=== PATIENT | female | born 1930 | race Two or more races ===

== ENCOUNTER → 2016-09-15 | Outpatient (CLI) | payer MEDICARE, OTHER ==
[2016-09-15 14:05] LABS: Basophils # (auto) 0 uL; Basophils % (auto) 0.5 % (0.0-2.0); Eosinophils # (auto) 0.1 uL; Eosinophils % (auto) 0.8 % (0.0-7.0); Hematocrit 32.5 % (36.0-46.0); Hemoglobin 10.7 g/dL (12.2-16.2); Lymphocytes # (auto) 2.3 uL; Mean Corpuscular Hemoglobin 31.4 pg (28.0-32.0); Mean Corpuscular Volume 95.1 fL (80.0-100.0); Mean Platelet Volume 7.9 fL (7.4-10.4); Monocytes # (auto) 0.6 uL; Monocytes % (auto) 7.8 % (0.0-12.0); Neutrophils # (auto) 5.3 uL; Neutrophils % (auto) 63.9 % (37.0-80.0); Platelet Count (auto) 319 10^3/uL (140-450); Red Cell Distribution Width 15.6 % (11.6-16.0); White Blood Cell 8.3 10^3/uL (4.4-10.8)
[2016-09-15 14:24] LABS: Albumin 3.5 g/dL (3.4-5.0); BUN/Creatinine Ratio 19.1; Bilirubin, Total 0.2 mg/dL (0.2-1.0); Calcium 8.9 mg/dL (8.5-10.1); Potassium 4.2 mmol/L (3.5-5.1); Total Protein 6.9 g/dL (6.4-8.2)
== END | disposition home or self-care (01) ==
LOC: LAB 13:44
DX: M06.9 Rheumatoid arthritis, unspecified (principal); M25.50 Pain in unspecified joint; D64.9 Anemia, unspecified; I10 Essential (primary) hypertension
CPT/HCPCS: 36415; 80053; 85025; 85049; 85652; 86141

== ENCOUNTER → 2016-10-13 | Outpatient (CLI) | payer MEDICARE, OTHER ==
[2016-10-13 12:12] LABS: Urine RBC None Seen /hpf (0 - 4)
[2016-10-13 12:27] LABS: Basophils # (auto) 0.1 uL; Basophils % (auto) 0.7 % (0.0-2.0); Eosinophils # (auto) 0.1 uL; Eosinophils % (auto) 1.3 % (0.0-7.0); Hematocrit 33.3 % (36.0-46.0); Hemoglobin 10.6 g/dL (12.2-16.2); Lymphocytes # (auto) 2.3 uL; Lymphocytes % (auto) 30.7 % (10.0-50.0); Mean Corpuscular Hemoglobin 30.7 pg (28.0-32.0); Mean Corpuscular Hgb Conc. 31.7 g/dL (32.0-36.0); Mean Corpuscular Volume 96.8 fL (80.0-100.0); Mean Platelet Volume 8.4 fL (7.4-10.4); Monocytes # (auto) 0.5 uL; Monocytes % (auto) 7.2 % (0.0-12.0); Neutrophils # (auto) 4.4 uL; Neutrophils % (auto) 60.1 % (37.0-80.0); Platelet Count (auto) 313 10^3/uL (140-450); White Blood Cell 7.4 10^3/uL (4.4-10.8)
[2016-10-13 12:44] LABS: Urine Bilirubin Negative (Negative); Urine Blood Negative /uL (Negative); Urine Color Yellow (Yellow); Urine Glucose Normal (Normal); Urine Ketone Negative (Negative); Urine Nitrite POSITIVE (Negative); Urine Squamous Epithelial Cell FEW /hpf (<5); Urine Urobilinogen Normal (Negative); Urine WBC Clumps PRESENT /hpf (None Seen); Urine pH 5.5 (5.0-8.0)
[2016-10-13 13:03] LABS: Albumin 3.6 g/dL (3.4-5.0); BUN/Creatinine Ratio 22.6; Bilirubin, Total 0.3 mg/dL (0.2-1.0); Calcium 8.9 mg/dL (8.5-10.1); Total Protein 6.8 g/dL (6.4-8.2)
== END | disposition home or self-care (01) ==
LOC: LAB 08:33
PROVIDERS: ATTEND Family Medicine
DX: E11.9 Type 2 diabetes mellitus without complications (principal); E03.9 Hypothyroidism, unspecified; D53.9 Nutritional anemia, unspecified; N39.0 Urinary tract infection, site not specified; E78.00 Pure hypercholesterolemia, unspecified
CPT/HCPCS: 36415; 80053; 80061; 81001; 82043; 83036; 84439; 84443; 85025

== ENCOUNTER → 2016-12-15 | Outpatient (CLI) | payer MEDICARE, OTHER ==
[2016-12-15 10:10] LABS: Basophils # (auto) 0 uL; Basophils % (auto) 0.5 % (0.0-2.0); Eosinophils # (auto) 0.1 uL; Eosinophils % (auto) 1.3 % (0.0-7.0); Hematocrit 32.3 % (36.0-46.0); Hemoglobin 10.6 g/dL (12.2-16.2); Lymphocytes # (auto) 1.8 uL; Lymphocytes % (auto) 25.9 % (10.0-50.0); Mean Corpuscular Hemoglobin 31.5 pg (28.0-32.0); Mean Corpuscular Hgb Conc. 32.8 g/dL (32.0-36.0); Mean Corpuscular Volume 96.2 fL (80.0-100.0); Mean Platelet Volume 7.9 fL (7.4-10.4); Monocytes # (auto) 0.4 uL; Monocytes % (auto) 5.2 % (0.0-12.0); Neutrophils # (auto) 4.7 uL; Neutrophils % (auto) 67.1 % (37.0-80.0); Platelet Count (auto) 319 10^3/uL (140-450); Red Cell Distribution Width 14.9 % (11.6-16.0)
[2016-12-15 10:31] LABS: Urine RBC None Seen /hpf (0 - 4)
[2016-12-15 10:32] LABS: Urine Bilirubin Negative (Negative); Urine Blood Negative /uL (Negative); Urine Color Yellow (Yellow); Urine Glucose Normal (Normal); Urine Ketone Negative (Negative); Urine Nitrite Negative (Negative); Urine Squamous Epithelial Cell FEW /hpf (<5); Urine Urobilinogen Normal (Negative); Urine pH 6.5 (5.0-8.0)
[2016-12-15 10:42] LABS: Albumin 3.4 g/dL (3.4-5.0); Calcium 8.6 mg/dL (8.5-10.1); Potassium 3.6 mmol/L (3.5-5.1)
[2016-12-15 10:44] LABS: BUN/Creatinine Ratio 22.4
[2016-12-15 10:47] LABS: Bilirubin, Total 0.4 mg/dL (0.2-1.0); Total Protein 6.7 g/dL (6.4-8.2)
== END | disposition home or self-care (01) ==
LOC: LAB 09:04
PROVIDERS: ATTEND Internal Medicine
DX: E11.9 Type 2 diabetes mellitus without complications (principal); E03.9 Hypothyroidism, unspecified; E78.00 Pure hypercholesterolemia, unspecified; D53.9 Nutritional anemia, unspecified; N39.0 Urinary tract infection, site not specified
CPT/HCPCS: 36415; 80053; 81001; 83036; 84439; 84443; 85025

== ENCOUNTER → 2017-01-28 | Outpatient (CLI) | payer MEDICARE, OTHER ==
[2017-01-28 14:51] LABS: Basophils # (auto) 0 uL; Basophils % (auto) 0.4 % (0.0-2.0); Eosinophils # (auto) 0.1 uL; Eosinophils % (auto) 0.9 % (0.0-7.0); Hematocrit 33.3 % (36.0-46.0); Hemoglobin 11.3 g/dL (12.2-16.2); Lymphocytes # (auto) 2.2 uL; Lymphocytes % (auto) 23.8 % (10.0-50.0); Mean Corpuscular Hemoglobin 32.4 pg (28.0-32.0); Mean Corpuscular Volume 95.1 fL (80.0-100.0); Mean Platelet Volume 8.2 fL (7.4-10.4); Monocytes # (auto) 0.6 uL; Monocytes % (auto) 6.5 % (0.0-12.0); Neutrophils # (auto) 6.3 uL; Neutrophils % (auto) 68.4 % (37.0-80.0); Platelet Count (auto) 337 10^3/uL (140-450); Red Cell Distribution Width 15.2 % (11.6-16.0); White Blood Cell 9.3 10^3/uL (4.4-10.8)
[2017-01-28 15:27] LABS: BUN/Creatinine Ratio 18.3; Bilirubin, Total 0.3 mg/dL (0.2-1.0); Calcium 8.6 mg/dL (8.5-10.1); Potassium 4.1 mmol/L (3.5-5.1)
[2017-01-28 15:28] LABS: Albumin 3.5 g/dL (3.4-5.0)
== END | disposition home or self-care (01) ==
LOC: LAB 14:28
DX: M05.60 Rheumatoid arthritis of unspecified site with involvement of other organs and systems (principal); D50.9 Iron deficiency anemia, unspecified; N39.0 Urinary tract infection, site not specified; E03.9 Hypothyroidism, unspecified; Z13.220 Encounter for screening for lipoid disorders
CPT/HCPCS: 36415; 80053; 85025; 85652; 86141

== ENCOUNTER → 2017-03-18 | Outpatient (CLI) | payer MEDICARE, OTHER ==
[2017-03-18 09:27] LABS: Urine RBC None Seen /hpf (0 - 4)
[2017-03-18 09:34] LABS: Basophils # (auto) 0 uL; Basophils % (auto) 0.4 % (0.0-2.0); CONDITION Y; Eosinophils # (auto) 0.1 uL; Eosinophils % (auto) 1.1 % (0.0-7.0); Hematocrit 33.8 % (36.0-46.0); Hemoglobin 11.4 g/dL (12.2-16.2); Lymphocytes # (auto) 2.6 uL; Lymphocytes % (auto) 36.3 % (10.0-50.0); Mean Corpuscular Hemoglobin 32.3 pg (28.0-32.0); Mean Corpuscular Hgb Conc. 33.6 g/dL (32.0-36.0); Mean Corpuscular Volume 96.1 fL (80.0-100.0); Mean Platelet Volume 8.1 fL (7.4-10.4); Monocytes # (auto) 0.5 uL; Monocytes % (auto) 6.7 % (0.0-12.0); Neutrophils % (auto) 55.5 % (37.0-80.0); Platelet Count (auto) 325 10^3/uL (140-450); Red Cell Distribution Width 14.9 % (11.6-16.0); White Blood Cell 7.3 10^3/uL (4.4-10.8)
[2017-03-18 09:41] LABS: Urine Bilirubin Negative (Negative); Urine Blood Negative /uL (Negative); Urine Color Yellow (Yellow); Urine Glucose Normal (Normal); Urine Ketone Negative (Negative); Urine Nitrite Negative (Negative); Urine Squamous Epithelial Cell FEW /hpf (<5); Urine Urobilinogen Normal (Negative)
[2017-03-18 10:43] LABS: Albumin 3.4 g/dL (3.4-5.0); BUN/Creatinine Ratio 20.4; Calcium 8.6 mg/dL (8.5-10.1); Potassium 3.9 mmol/L (3.5-5.1)
[2017-03-18 10:46] LABS: Bilirubin, Total 0.3 mg/dL (0.2-1.0); Total Protein 6.8 g/dL (6.4-8.2)
== END | disposition home or self-care (01) ==
LOC: LAB 09:11
DX: E11.9 Type 2 diabetes mellitus without complications (principal); E03.9 Hypothyroidism, unspecified; N39.0 Urinary tract infection, site not specified; D53.9 Nutritional anemia, unspecified; E78.00 Pure hypercholesterolemia, unspecified
CPT/HCPCS: 36415; 80053; 81001; 82306; 83036; 84439; 84443; 85025

== ENCOUNTER → 2017-06-22 | Outpatient (CLI) | payer MEDICARE, OTHER ==
[2017-06-22 10:22] LABS: Urine RBC None Seen /hpf (0 - 4)
[2017-06-22 10:40] LABS: Basophils # (auto) 0.1 uL; Basophils % (auto) 0.8 % (0.0-2.0); Eosinophils # (auto) 0.1 uL; Eosinophils % (auto) 0.9 % (0.0-7.0); Hematocrit 34.1 % (36.0-46.0); Hemoglobin 11.6 g/dL (12.2-16.2); Lymphocytes # (auto) 2.3 uL; Mean Corpuscular Hemoglobin 32.8 pg (28.0-32.0); Mean Corpuscular Hgb Conc. 34.1 g/dL (32.0-36.0); Mean Corpuscular Volume 96.1 fL (80.0-100.0); Mean Platelet Volume 7.8 fL (6.9-10.8); Monocytes # (auto) 0.6 uL; Monocytes % (auto) 6.8 % (0.0-12.0); Neutrophils # (auto) 5.7 uL; Neutrophils % (auto) 65.5 % (37.0-80.0); Nucleated Red Blood Cells % 0.1 %; Platelet Count (auto) 284 10^3/uL (140-450); Red Cell Distribution Width 14.7 % (11.8-14.3); White Blood Cell 8.7 10^3/uL (4.4-10.8)
[2017-06-22 10:42] LABS: Urine Bilirubin Negative (Negative); Urine Blood Negative /uL (Negative); Urine Color Yellow (Yellow); Urine Glucose Normal (Normal); Urine Ketone Negative (Negative); Urine Nitrite Negative (Negative); Urine Squamous Epithelial Cell FEW /hpf (<5); Urine Urobilinogen Normal (Negative); Urine pH 6.5 (5.0-8.0)
[2017-06-22 11:04] LABS: BUN/Creatinine Ratio 18.2; Calcium 8.7 mg/dL (8.5-10.1); Potassium 3.7 mmol/L (3.5-5.1)
== END | disposition home or self-care (01) ==
LOC: LAB 09:53
DX: E11.9 Type 2 diabetes mellitus without complications (principal); E03.9 Hypothyroidism, unspecified; N39.0 Urinary tract infection, site not specified; D53.9 Nutritional anemia, unspecified; E78.00 Pure hypercholesterolemia, unspecified
CPT/HCPCS: 36415; 80048; 80061; 81001; 82043; 83036; 85025

== ENCOUNTER → 2017-09-21 | Outpatient (CLI) | payer MEDICARE, OTHER ==
[2017-09-21 09:23] LABS: Basophils # (auto) 0.1 uL; Basophils % (auto) 0.5 % (0.0-2.0); Eosinophils # (auto) 0.1 uL; Eosinophils % (auto) 1.1 % (0.0-7.0); Hematocrit 35.1 % (36.0-46.0); Hemoglobin 11.7 g/dL (12.2-16.2); Lymphocytes # (auto) 1.9 uL; Mean Corpuscular Hemoglobin 32.2 pg (28.0-32.0); Mean Corpuscular Hgb Conc. 33.4 g/dL (32.0-36.0); Mean Corpuscular Volume 96.4 fL (80.0-100.0); Monocytes # (auto) 0.7 uL; Monocytes % (auto) 7.6 % (0.0-12.0); Neutrophils # (auto) 6.7 uL; Neutrophils % (auto) 70.8 % (37.0-80.0); Platelet Count (auto) 332 10^3/uL (140-450); Red Blood Cells 3.64 10^6/uL (4.0-5.20); White Blood Cell 9.5 10^3/uL (4.4-10.8)
[2017-09-21 09:36] LABS: Urine Bacteria FEW /hpf (None Seen); Urine Blood Negative /uL (Negative); Urine Mucus FEW (None Seen); Urine Specific Gravity 1.025 (1.001-1.035); Urine WBC 14 /hpf (0 - 5)
[2017-09-21 09:45] LABS: Albumin 3.6 g/dL (3.4-5.0); BUN/Creatinine Ratio 21.6; Bilirubin, Total 0.4 mg/dL (0.2-1.0); Calcium 8.4 mg/dL (8.5-10.1); Potassium 3.6 mmol/L (3.5-5.1); Total Protein 7.1 g/dL (6.4-8.2)
== END | disposition home or self-care (01) ==
LOC: LAB 08:58
DX: E11.9 Type 2 diabetes mellitus without complications (principal); D53.9 Nutritional anemia, unspecified; E78.9 Disorder of lipoprotein metabolism, unspecified; N39.0 Urinary tract infection, site not specified
CPT/HCPCS: 36415; 80053; 81001; 82043; 82550; 83036; 85025

== ENCOUNTER → 2017-12-14 | Outpatient (CLI) | payer MEDICARE, OTHER ==
[2017-12-14 09:21] LABS: Basophils # (auto) 0 uL; Basophils % (auto) 0.5 % (0.0-2.0); Eosinophils # (auto) 0.1 uL; Eosinophils % (auto) 1.2 % (0.0-7.0); Hematocrit 35.2 % (36.0-46.0); Hemoglobin 11.8 g/dL (12.2-16.2); Lymphocytes # (auto) 1.9 uL; Lymphocytes % (auto) 23.9 % (10.0-50.0); Mean Corpuscular Hemoglobin 32.1 pg (28.0-32.0); Mean Corpuscular Hgb Conc. 33.4 g/dL (32.0-36.0); Mean Corpuscular Volume 96.1 fL (80.0-100.0); Monocytes # (auto) 0.5 uL; Monocytes % (auto) 6.4 % (0.0-12.0); Neutrophils # (auto) 5.3 uL; Platelet Count (auto) 286 10^3/uL (140-450); Red Blood Cells 3.66 10^6/uL (4.0-5.20); Red Cell Distribution Width 14.1 % (11.8-14.3); White Blood Cell 7.8 10^3/uL (4.4-10.8)
[2017-12-14 09:31] LABS: Urine Bacteria FEW /hpf (None Seen); Urine Blood Negative /uL (Negative); Urine Specific Gravity 1.009 (1.001-1.035); Urine WBC 9 /hpf (0 - 5)
[2017-12-14 09:44] LABS: Albumin 3.5 g/dL (3.4-5.0); BUN/Creatinine Ratio 20.3; Bilirubin, Total 0.4 mg/dL (0.2-1.0); Calcium 8.6 mg/dL (8.5-10.1); Potassium 3.8 mmol/L (3.5-5.1); Total Protein 6.9 g/dL (6.4-8.2)
== END | disposition home or self-care (01) ==
LOC: LAB 08:46
DX: E11.22 Type 2 diabetes mellitus with diabetic chronic kidney disease (principal); I12.9 Hypertensive chronic kidney disease with stage 1 through stage 4 chronic kidney disease, or unspecified chronic kidney disease; N18.9 Chronic kidney disease, unspecified; E78.9 Disorder of lipoprotein metabolism, unspecified; D53.9 Nutritional anemia, unspecified; N39.0 Urinary tract infection, site not specified; E78.00 Pure hypercholesterolemia, unspecified; M06.9 Rheumatoid arthritis, unspecified; Z79.899 Other long term (current) drug therapy
CPT/HCPCS: 36415; 80053; 81001; 82043; 83036; 85025

== ENCOUNTER → 2018-06-07 | Outpatient (CLI) | payer MEDICARE, OTHER ==
[2018-06-07 11:00] LABS: Urine Bacteria NONE SEEN /hpf (None Seen); Urine Blood Negative /uL (Negative); Urine Mucus FEW (None Seen); Urine WBC 1 /hpf (0 - 5)
[2018-06-07 11:10] LABS: Albumin 3.4 g/dL (3.4-5.0); Calcium 8.5 mg/dL (8.5-10.1); Potassium 4.1 mmol/L (3.5-5.1)
[2018-06-07 11:11] LABS: BUN/Creatinine Ratio 19.4
[2018-06-07 11:14] LABS: Bilirubin, Total 0.5 mg/dL (0.2-1.0); Total Protein 7.1 g/dL (6.4-8.2)
== END | disposition home or self-care (01) ==
LOC: LAB 10:25
DX: E11.9 Type 2 diabetes mellitus without complications (principal); N39.0 Urinary tract infection, site not specified; D53.9 Nutritional anemia, unspecified
CPT/HCPCS: 36415; 80053; 81001; 82043; 83036

== ENCOUNTER → 2018-09-06 | Outpatient (CLI) | payer MEDICARE, OTHER ==
[2018-09-06 10:07] LABS: Basophils # (auto) 0.1 uL; Basophils % (auto) 0.7 % (0.0-2.0); Eosinophils # (auto) 0.1 uL; Hemoglobin 11.8 g/dL (12.2-16.2); Lymphocytes # (auto) 2.2 uL; Lymphocytes % (auto) 25.7 % (10.0-50.0); Mean Corpuscular Hemoglobin 32.3 pg (28.0-32.0); Mean Corpuscular Hgb Conc. 33.6 g/dL (32.0-36.0); Monocytes # (auto) 0.7 uL; Monocytes % (auto) 8.1 % (0.0-12.0); Neutrophils # (auto) 5.6 uL; Neutrophils % (auto) 64.5 % (37.0-80.0); Platelet Count (auto) 278 10^3/uL (140-450); Red Blood Cells 3.65 10^6/uL (4.0-5.20); Red Cell Distribution Width 15.1 % (11.8-14.3); White Blood Cell 8.7 10^3/uL (4.4-10.8)
[2018-09-06 10:13] LABS: Urine Bacteria NONE SEEN /hpf (None Seen); Urine Blood Negative /uL (Negative); Urine Specific Gravity 1.016 (1.001-1.035); Urine WBC 2 /hpf (0 - 5)
[2018-09-06 10:24] LABS: Albumin 3.6 g/dL (3.4-5.0); Calcium 8.6 mg/dL (8.5-10.1); Potassium 3.8 mmol/L (3.5-5.1)
[2018-09-06 10:27] LABS: BUN/Creatinine Ratio 17.9; Bilirubin, Total 0.4 mg/dL (0.2-1.0)
== END | disposition home or self-care (01) ==
LOC: LAB 09:32
DX: N39.0 Urinary tract infection, site not specified (principal); E11.9 Type 2 diabetes mellitus without complications; E03.9 Hypothyroidism, unspecified; D53.9 Nutritional anemia, unspecified
CPT/HCPCS: 36415; 80053; 81001; 82043; 83036; 85025

== ENCOUNTER → 2018-12-13 | Outpatient (CLI) | payer MEDICARE, OTHER ==
[2018-12-13 09:00] LABS: Basophils # (auto) 0 uL; Basophils % (auto) 0.4 % (0.0-2.0); Eosinophils # (auto) 0.1 uL; Eosinophils % (auto) 0.7 % (0.0-7.0); Hematocrit 36.7 % (36.0-46.0); Hemoglobin 12.2 g/dL (12.2-16.2); Lymphocytes # (auto) 2.5 uL; Lymphocytes % (auto) 25.4 % (10.0-50.0); Mean Corpuscular Hemoglobin 32.3 pg (28.0-32.0); Mean Corpuscular Hgb Conc. 33.1 g/dL (32.0-36.0); Mean Corpuscular Volume 97.5 fL (80.0-100.0); Monocytes # (auto) 0.8 uL; Monocytes % (auto) 8.1 % (0.0-12.0); Neutrophils # (auto) 6.5 uL; Neutrophils % (auto) 65.4 % (37.0-80.0); Nucleated Red Blood Cells % 0.1 %; Platelet Count (auto) 272 10^3/uL (140-450); Red Blood Cells 3.76 10^6/uL (4.0-5.20); Red Cell Distribution Width 14.9 % (11.8-14.3)
[2018-12-13 09:17] LABS: Albumin 3.5 g/dL (3.4-5.0); BUN/Creatinine Ratio 15.9; Calcium 8.7 mg/dL (8.5-10.1)
[2018-12-13 09:19] LABS: Protein, Urine 15.8 mg/dL (0.0-11.9)
[2018-12-13 09:20] LABS: Urine Bacteria MOD /hpf (None Seen); Urine Blood Negative /uL (Negative); Urine Specific Gravity 1.013 (1.001-1.035); Urine WBC 3 /hpf (0 - 5)
[2018-12-13 09:21] LABS: Bilirubin, Total 0.4 mg/dL (0.2-1.0); Total Protein 6.9 g/dL (6.4-8.2)
== END | disposition home or self-care (01) ==
LOC: LAB 08:47
DX: N39.0 Urinary tract infection, site not specified (principal); E11.9 Type 2 diabetes mellitus without complications; E03.9 Hypothyroidism, unspecified; E78.00 Pure hypercholesterolemia, unspecified; D53.9 Nutritional anemia, unspecified
CPT/HCPCS: 36415; 80053; 80061; 81001; 82570; 83036; 84156; 84439; 84443; 85025

== ENCOUNTER → 2019-03-14 | Outpatient (CLI) | payer MEDICARE, OTHER ==
[2019-03-14 09:54] LABS: Basophils # (auto) 0 uL; Basophils % (auto) 0.5 % (0.0-2.0); Eosinophils # (auto) 0 uL; Eosinophils % (auto) 0.5 % (0.0-7.0); Hematocrit 33.6 % (36.0-46.0); Hemoglobin 11.5 g/dL (12.2-16.2); Lymphocytes # (auto) 2.5 uL; Lymphocytes % (auto) 31.3 % (10.0-50.0); Mean Corpuscular Hemoglobin 33.3 pg (28.0-32.0); Mean Corpuscular Hgb Conc. 34.3 g/dL (32.0-36.0); Mean Corpuscular Volume 97.2 fL (80.0-100.0); Monocytes # (auto) 0.6 uL; Monocytes % (auto) 7.6 % (0.0-12.0); Neutrophils # (auto) 4.8 uL; Neutrophils % (auto) 60.1 % (37.0-80.0); Platelet Count (auto) 257 10^3/uL (140-450); Red Blood Cells 3.45 10^6/uL (4.0-5.20); Red Cell Distribution Width 14.3 % (11.8-14.3)
[2019-03-14 10:08] LABS: Albumin 3.3 g/dL (3.4-5.0); Calcium 8.5 mg/dL (8.5-10.1)
[2019-03-14 10:13] LABS: BUN/Creatinine Ratio 18.8; Bilirubin, Total 0.4 mg/dL (0.2-1.0); Total Protein 6.7 g/dL (6.4-8.2)
== END | disposition home or self-care (01) ==
LOC: LAB 09:32
PROVIDERS: ATTEND Internal Medicine
DX: M89.8X9 Other specified disorders of bone, unspecified site (principal); E11.9 Type 2 diabetes mellitus without complications
CPT/HCPCS: 36415; 80053; 83036; 85025

== ENCOUNTER → 2019-06-15 | Outpatient (CLI) | payer MEDICARE, OTHER ==
[2019-06-15 10:39] LABS: Basophils # (auto) 0.1 uL; Basophils % (auto) 0.6 % (0.0-2.0); Eosinophils # (auto) 0.1 uL; Eosinophils % (auto) 1.1 % (0.0-7.0); Hematocrit 33.6 % (36.0-46.0); Hemoglobin 11.3 g/dL (12.2-16.2); Lymphocytes # (auto) 2.2 uL; Lymphocytes % (auto) 25.2 % (10.0-50.0); Mean Corpuscular Hgb Conc. 33.5 g/dL (32.0-36.0); Mean Corpuscular Volume 98.6 fL (80.0-100.0); Monocytes # (auto) 0.6 uL; Neutrophils # (auto) 5.9 uL; Neutrophils % (auto) 66.1 % (37.0-80.0); Platelet Count (auto) 266 10^3/uL (140-450); Red Blood Cells 3.41 10^6/uL (4.0-5.20); Red Cell Distribution Width 14.2 % (11.8-14.3); White Blood Cell 8.9 10^3/uL (4.4-10.8)
[2019-06-15 10:46] LABS: Urine Bacteria MANY /hpf (None Seen); Urine Blood Negative /uL (Negative); Urine Specific Gravity 1.014 (1.001-1.035); Urine WBC 59 /hpf (0 - 5); Urine WBC Clumps PRESENT /hpf (None Seen)
[2019-06-15 10:56] LABS: Albumin 3.2 g/dL (3.4-5.0); Calcium 8.7 mg/dL (8.5-10.1)
[2019-06-15 10:59] LABS: BUN/Creatinine Ratio 19.4; Bilirubin, Total 0.3 mg/dL (0.2-1.0); Total Protein 6.6 g/dL (6.4-8.2)
== END | disposition home or self-care (01) ==
LOC: LAB 10:30
DX: E11.9 Type 2 diabetes mellitus without complications (principal); E78.9 Disorder of lipoprotein metabolism, unspecified; N39.0 Urinary tract infection, site not specified
CPT/HCPCS: 36415; 80053; 81001; 83036; 85025

== ENCOUNTER → 2019-09-07 | Outpatient (CLI) | payer MEDICARE, OTHER ==
[2019-09-07 09:28] LABS: Urine Bacteria FEW /hpf (None Seen); Urine Blood Negative /uL (Negative); Urine Specific Gravity 1.008 (1.001-1.035); Urine WBC 29 /hpf (0 - 5)
[2019-09-07 09:52] LABS: Albumin 3.6 g/dL (3.4-5.0); Calcium 8.9 mg/dL (8.5-10.1); Potassium 3.9 mmol/L (3.5-5.1)
[2019-09-07 09:57] LABS: BUN/Creatinine Ratio 19.4; Bilirubin, Total 0.4 mg/dL (0.2-1.0); Total Protein 7.1 g/dL (6.4-8.2)
== END | disposition home or self-care (01) ==
LOC: LAB 09:12
DX: E11.9 Type 2 diabetes mellitus without complications (principal); N39.0 Urinary tract infection, site not specified; E78.00 Pure hypercholesterolemia, unspecified; D53.9 Nutritional anemia, unspecified
CPT/HCPCS: 36415; 80053; 80061; 81001; 83036

== ENCOUNTER 2021-06-06 11:07 | Inpatient (IN) | payer MEDICARE, OTHER ==
[~2021-06-06] VITALS: Ht 154.9 cm; Wt 55.2 kg
[2021-06-06] MEDS ORDERED: SODIUM CHLORIDE 0.9% 500 ML IV ONE (11:30)
[2021-06-06 11:50] LABS: Basophils # (auto) 0 10 ^3/uL (0-0.2); Basophils % (auto) 0.5 % (0.0-2.0); Eosinophils # (auto) 0.1 10 ^3/uL (0-0.8); Eosinophils % (auto) 0.6 % (0.0-7.0); Hematocrit 35.7 % (36.0-46.0); Hemoglobin 11.9 g/dL (12.2-16.2); Lymphocytes # (auto) 1.5 10 ^3/uL (0.4-5.4); Lymphocytes % (auto) 16.4 % (10.0-50.0); Mean Corpuscular Hemoglobin 32.6 pg (28.0-32.0); Mean Corpuscular Hgb Conc. 33.3 g/dL (32.0-36.0); Monocytes # (auto) 0.6 10 ^3/uL (0-1.3); Neutrophils # (auto) 6.8 10 ^3/uL (1.6-8.6); Neutrophils % (auto) 75.5 % (37.0-80.0); Nucleated Red Blood Cells % 0.1 %; Red Blood Cells 3.64 10^6/uL (4.0-5.20); Red Cell Distribution Width 13.6 % (11.8-14.3)
[2021-06-06 13:10] LABS: Chloride 107 mmol/L (98-107); Potassium 4.2 mmol/L (3.5-5.1); Sodium 138 mmol/L (136-145)
[2021-06-06 13:18] LABS: Alanine Aminotransferase 24 U/L (13-56); Albumin 2.6 g/dL (3.4-5.0); Anion Gap 8 (5-15); Aspartate Aminotransferase 16 U/L (15-37); BUN/Creatinine Ratio 19.7; Blood Urea Nitrogen 14 mg/dL (7-18); Calcium 9.1 mg/dL (8.5-10.1); Carbon Dioxide 23 mmol/L (21-32); GFR African American 100 mL/min; GFR Non-African American 83 mL/min; Glucose 123 mg/dL (74-106); Magnesium 1.4 mg/dL (1.6-2.6)
[2021-06-06 13:20] LABS: Alkaline Phosphatase 56 U/L (45-117); Bilirubin, Total 0.3 mg/dL (0.2-1.0); Total Protein 6.4 g/dL (6.4-8.2)
[2021-06-06 13:58] LABS: Urine Bacteria FEW /hpf (None Seen); Urine Blood Negative /uL (Negative); Urine Mucus FEW (None Seen); Urine Specific Gravity 1.007 (1.001-1.035); Urine WBC 52 /hpf (0 - 5)
[2021-06-06] MEDS ORDERED: CEFTRIAXONE SODIUM 2 GM in D5W 5% 50 ML IV ONE (15:30)
[2021-06-06] MEDS ORDERED: MORPHINE SULFATE INJECTION 2 MG/ML SYRG IV PRN ×3 (15:30→19:30)
[2021-06-06] MEDS ORDERED: NITROGLYCERIN 0.4 MG SL TAB SL PRN ×2 (15:30→19:30)
[2021-06-06] MEDS: MAGNESIUM SULFATE 1GM/100ML 100 ML IV SCH ×2 (17:34→18:42)
[2021-06-06] MEDS ORDERED: MUPIROCIN 2% OINT 15gm or 22gm TOP ONE (18:45)
[2021-06-06] MEDS ORDERED: METOPROLOL SUCCINATE XL 50 MG TAB PO ONE (19:30)
[2021-06-06] MEDS ORDERED: DEXTROSE (50%) 50ML SYRG IV PRN (19:30)
[2021-06-06] MEDS ORDERED: hydrALAZINE HCL 20 MG/ML VL IV PRN (19:30)
[2021-06-06] MEDS ORDERED: DOCUSATE SOD 100 MG CAP PO PRN (19:30)
[2021-06-06] MEDS ORDERED: ACETAMINOPHEN 325 MG TAB PO PRN (19:30)
[2021-06-06] MEDS ORDERED: DICYCLOMINE HCL 10 MG CAP PO PRN (19:30)
[2021-06-06] MEDS ORDERED: ALUM & MAG HYDROX-SIMETH LIQ(MAALOX) 30 ML PO PRN (19:30)
[2021-06-06] MEDS ORDERED: CLINDAMYCIN 600MG IV 50 ML IV ONE (19:30)
[2021-06-06] MEDS ORDERED: LORazepam 0.5 MG TAB PO PRN (19:30)
[2021-06-06] MEDS ORDERED: ONDANSETRON HCL 4 MG/2 ML VIAL IV PRN (19:30)
[2021-06-06] MEDS ORDERED: OMEP-260 PO (19:33)
[2021-06-06] MEDS ORDERED: TRAZ100T3 PO (19:33)
[2021-06-06] MEDS ORDERED: MONT-8 PO (19:33)
[2021-06-06] MEDS: SODIUM CHLORIDE 0.9% 1,000 ML IV SCH (20:54)
[2021-06-06] MEDS: HYDROcodone-ACET 5/325MG TAB PO PRN (20:55)
[2021-06-06 22:00] VITALS: BP 145/71
[2021-06-06] MEDS ORDERED: MUPIROCIN 2% OINT 15gm or 22gm TOP SCH (22:00)
[2021-06-06] MEDS: InsuLIN REG 1unit/0.01ml Soln (100units/ml) SC SCH ×2 (22:00→22:11)
[2021-06-06] MEDS: FAMOTIDINE (10MG/ML) 2ML VL IV SCH (22:00)
[2021-06-06] MEDS: ACCU-CHEK COMFORT CURVE STRIP VI SCH (22:10)
[2021-06-06] MEDS: QUEtiapine FUMARATE 100 MG TAB PO SCH (22:20)
[2021-06-06] MEDS: ATORVASTATIN 20 MG TAB PO SCH (22:20)
[2021-06-06] MEDS: CLINDAMYCIN 600MG IV 50 ML IV SCH (22:20)
[2021-06-06] MEDS: GABAPENTIN 300 MG CAP PO SCH (22:20)
[2021-06-06 22:27] LABS: INR 0.99 (0.9-1.15)
[2021-06-06] MEDS: TOLTERODINE TARTRATE 1 MG TAB PO SCH (22:38)
[2021-06-07 05:30] VITALS: BP 138/52
[2021-06-07] MEDS: CLINDAMYCIN 600MG IV 50 ML IV SCH (05:55)
[2021-06-07] MEDS: GABAPENTIN 300 MG CAP PO SCH ×3 (05:55→21:32)
[2021-06-07] MEDS: ACCU-CHEK COMFORT CURVE STRIP VI SCH ×4 (06:32→21:33)
[2021-06-07 09:09] VITALS: BP 155/74
[2021-06-07] MEDS: CEFTRIAXONE SODIUM 2 GM in D5W 5% 50 ML IV SCH (11:33)
[2021-06-07] MEDS: FAMOTIDINE (10MG/ML) 2ML VL IV SCH (11:33)
[2021-06-07] MEDS: TOLTERODINE TARTRATE 1 MG TAB PO SCH ×2 (11:33→21:32)
[2021-06-07] MEDS: NIFEdipine ER 30 MG TAB PO SCH (11:33)
[2021-06-07] MEDS: LISINOPRIL 20 MG TAB PO SCH (11:34)
[2021-06-07] MEDS: METOPROLOL SUCCINATE XL 50 MG TAB PO SCH (11:34)
[2021-06-07] MEDS: InsuLIN REG 1unit/0.01ml Soln (100units/ml) SC SCH ×3 (12:28→21:36)
[2021-06-07 13:10] VITALS: BP 143/99
[2021-06-07] MEDS ORDERED: LORazepam 2MG/ML-1ML VIAL IV PRN (14:15)
[2021-06-07] MEDS: SODIUM CHLORIDE 0.9% 1,000 ML IV SCH (15:23)
[2021-06-07 17:00] VITALS: BP 141/70
[2021-06-07] MEDS: QUEtiapine FUMARATE 100 MG TAB PO SCH (21:32)
[2021-06-07] MEDS: ATORVASTATIN 20 MG TAB PO SCH (21:32)
[2021-06-07 22:00] VITALS: BP 147/68
[2021-06-08] MEDS: SODIUM CHLORIDE 0.9% 1,000 ML IV SCH (04:02)
[2021-06-08 05:00] VITALS: BP 110/50
[2021-06-08] MEDS: GABAPENTIN 300 MG CAP PO SCH ×3 (05:54→21:41)
[2021-06-08] MEDS: InsuLIN REG 1unit/0.01ml Soln (100units/ml) SC SCH ×4 (05:54→21:54)
[2021-06-08] MEDS: ACCU-CHEK COMFORT CURVE STRIP VI SCH ×4 (05:55→21:42)
[2021-06-08 05:59] LABS: Basophils # (auto) 0.1 10 ^3/uL (0-0.2); Basophils % (auto) 0.8 % (0.0-2.0); Eosinophils # (auto) 0.1 10 ^3/uL (0-0.8); Eosinophils % (auto) 1.1 % (0.0-7.0); Hematocrit 35.6 % (36.0-46.0); Hemoglobin 11.9 g/dL (12.2-16.2); Lymphocytes % (auto) 21.9 % (10.0-50.0); Mean Corpuscular Hemoglobin 32.6 pg (28.0-32.0); Mean Corpuscular Hgb Conc. 33.5 g/dL (32.0-36.0); Mean Corpuscular Volume 97.5 fL (80.0-100.0); Monocytes % (auto) 10.7 % (0.0-12.0); Neutrophils # (auto) 5.9 10 ^3/uL (1.6-8.6); Neutrophils % (auto) 65.5 % (37.0-80.0); Red Blood Cells 3.65 10^6/uL (4.0-5.20); Red Cell Distribution Width 13.6 % (11.8-14.3)
[2021-06-08 06:06] LABS: Calcium 8.5 mg/dL (8.5-10.1); Potassium 3.3 mmol/L (3.5-5.1)
[2021-06-08 06:09] LABS: BUN/Creatinine Ratio 16.1
[2021-06-08 09:00] VITALS: BP 140/73
[2021-06-08] MEDS: TOLTERODINE TARTRATE 1 MG TAB PO SCH ×2 (10:45→21:42)
[2021-06-08] MEDS: CEFTRIAXONE SODIUM 2 GM in D5W 5% 50 ML IV SCH (10:45)
[2021-06-08] MEDS: FAMOTIDINE (10MG/ML) 2ML VL IV SCH (10:45)
[2021-06-08] MEDS: NIFEdipine ER 30 MG TAB PO SCH (10:46)
[2021-06-08] MEDS: LISINOPRIL 20 MG TAB PO SCH (10:47)
[2021-06-08] MEDS: METOPROLOL SUCCINATE XL 50 MG TAB PO SCH (10:47)
[2021-06-08] MEDS ORDERED: POTASSIUM EFFERVESENT TAB 25 MEQ PO ONE (12:00)
[2021-06-08 13:00] VITALS: BP 146/66
[2021-06-08 17:00] VITALS: BP 140/73
[2021-06-08] MEDS: ATORVASTATIN 20 MG TAB PO SCH (21:41)
[2021-06-08] MEDS: QUEtiapine FUMARATE 100 MG TAB PO SCH (21:41)
[2021-06-08 22:00] VITALS: BP 146/69
[2021-06-09] MEDS: SODIUM CHLORIDE 0.9% 1,000 ML IV SCH ×2 (01:38→20:00)
[2021-06-09 05:00] VITALS: BP 137/73
[2021-06-09] MEDS: GABAPENTIN 300 MG CAP PO SCH ×3 (06:04→21:40)
[2021-06-09] MEDS: InsuLIN REG 1unit/0.01ml Soln (100units/ml) SC SCH ×4 (06:04→21:43)
[2021-06-09] MEDS: ACCU-CHEK COMFORT CURVE STRIP VI SCH ×4 (06:05→21:40)
[2021-06-09 06:09] LABS: Basophils # (auto) 0.1 10 ^3/uL (0-0.2); Basophils % (auto) 0.9 % (0.0-2.0); Eosinophils # (auto) 0.1 10 ^3/uL (0-0.8); Eosinophils % (auto) 1.4 % (0.0-7.0); Hematocrit 34.2 % (36.0-46.0); Hemoglobin 11.5 g/dL (12.2-16.2); Lymphocytes # (auto) 2.1 10 ^3/uL (0.4-5.4); Lymphocytes % (auto) 22.4 % (10.0-50.0); Mean Corpuscular Hemoglobin 32.8 pg (28.0-32.0); Mean Corpuscular Hgb Conc. 33.5 g/dL (32.0-36.0); Mean Corpuscular Volume 97.9 fL (80.0-100.0); Monocytes # (auto) 0.9 10 ^3/uL (0-1.3); Monocytes % (auto) 9.7 % (0.0-12.0); Neutrophils # (auto) 6.2 10 ^3/uL (1.6-8.6); Neutrophils % (auto) 65.6 % (37.0-80.0); Red Blood Cells 3.49 10^6/uL (4.0-5.20); Red Cell Distribution Width 13.6 % (11.8-14.3); White Blood Cell 9.5 10^3/uL (4.4-10.8)
[2021-06-09 06:30] LABS: BUN/Creatinine Ratio 13.3; Calcium 8.3 mg/dL (8.5-10.1); Potassium 3.4 mmol/L (3.5-5.1)
[2021-06-09 09:00] VITALS: BP 142/74
[2021-06-09] MEDS ORDERED: POTASSIUM EFFERVESENT TAB 25 MEQ GT ONE (10:45)
[2021-06-09] MEDS: HYDROcodone-ACET 5/325MG TAB PO PRN (12:10)
[2021-06-09] MEDS: FAMOTIDINE (10MG/ML) 2ML VL IV SCH (12:22)
[2021-06-09] MEDS: CEFTRIAXONE SODIUM 2 GM in D5W 5% 50 ML IV SCH (12:22)
[2021-06-09] MEDS: TOLTERODINE TARTRATE 1 MG TAB PO SCH ×2 (12:22→21:40)
[2021-06-09] MEDS: NIFEdipine ER 30 MG TAB PO SCH (12:23)
[2021-06-09] MEDS: LISINOPRIL 20 MG TAB PO SCH (12:24)
[2021-06-09] MEDS: METOPROLOL SUCCINATE XL 50 MG TAB PO SCH (12:24)
[2021-06-09 13:00] VITALS: BP 163/78
[2021-06-09 17:00] VITALS: BP_SYST 141; BP_SYST 189; BP_DIAS 69; BP_DIAS 86
[2021-06-09] MEDS: QUEtiapine FUMARATE 100 MG TAB PO SCH (21:40)
[2021-06-09] MEDS: ATORVASTATIN 20 MG TAB PO SCH (21:40)
[2021-06-09 22:00] VITALS: BP 161/79
[2021-06-10 05:30] VITALS: BP 147/90
[2021-06-10 05:47] LABS: Basophils # (auto) 0 10 ^3/uL (0-0.2); Basophils % (auto) 0.5 % (0.0-2.0); Eosinophils # (auto) 0.1 10 ^3/uL (0-0.8); Eosinophils % (auto) 0.8 % (0.0-7.0); Hematocrit 35.6 % (36.0-46.0); Hemoglobin 12.3 g/dL (12.2-16.2); Lymphocytes # (auto) 2.2 10 ^3/uL (0.4-5.4); Lymphocytes % (auto) 22.8 % (10.0-50.0); Mean Corpuscular Hemoglobin 33.6 pg (28.0-32.0); Mean Corpuscular Hgb Conc. 34.5 g/dL (32.0-36.0); Mean Corpuscular Volume 97.3 fL (80.0-100.0); Monocytes % (auto) 10.1 % (0.0-12.0); Neutrophils # (auto) 6.2 10 ^3/uL (1.6-8.6); Neutrophils % (auto) 65.8 % (37.0-80.0); Nucleated Red Blood Cells % 0.1 %; Red Blood Cells 3.66 10^6/uL (4.0-5.20); Red Cell Distribution Width 13.5 % (11.8-14.3); White Blood Cell 9.5 10^3/uL (4.4-10.8)
[2021-06-10] MEDS: ACCU-CHEK COMFORT CURVE STRIP VI SCH ×4 (06:08→22:31)
[2021-06-10] MEDS: GABAPENTIN 300 MG CAP PO SCH ×3 (06:08→22:02)
[2021-06-10] MEDS: InsuLIN REG 1unit/0.01ml Soln (100units/ml) SC SCH ×4 (06:09→22:30)
[2021-06-10 06:16] LABS: Anion Gap 9 (5-15); Blood Urea Nitrogen 7 mg/dL (7-18); Carbon Dioxide 22 mmol/L (21-32); Chloride 109 mmol/L (98-107); Glucose 144 mg/dL (74-106); Potassium 3.3 mmol/L (3.5-5.1); Sodium 140 mmol/L (136-145)
[2021-06-10 06:18] LABS: BUN/Creatinine Ratio 14.6; GFR African American 157 mL/min; GFR Non-African American 130 mL/min
[2021-06-10 09:00] VITALS: BP 129/54
[2021-06-10] MEDS: HYDROcodone-ACET 5/325MG TAB PO PRN ×2 (09:12→14:16)
[2021-06-10] MEDS: FAMOTIDINE (10MG/ML) 2ML VL IV SCH (10:14)
[2021-06-10] MEDS: CEFTRIAXONE SODIUM 2 GM in D5W 5% 50 ML IV SCH (10:15)
[2021-06-10] MEDS: TOLTERODINE TARTRATE 1 MG TAB PO SCH ×2 (10:15→22:02)
[2021-06-10] MEDS: METOPROLOL SUCCINATE XL 50 MG TAB PO SCH (10:16)
[2021-06-10] MEDS: LISINOPRIL 20 MG TAB PO SCH (10:17)
[2021-06-10] MEDS: NIFEdipine ER 30 MG TAB PO SCH (12:48)
[2021-06-10 13:00] VITALS: BP 146/73
[2021-06-10 22:00] VITALS: BP 156/67
[2021-06-10] MEDS: ATORVASTATIN 20 MG TAB PO SCH (22:02)
[2021-06-10] MEDS: QUEtiapine FUMARATE 100 MG TAB PO SCH (22:02)
[2021-06-11] MEDS: SODIUM CHLORIDE 0.9% 1,000 ML IV SCH (00:10)
[2021-06-11 04:52] VITALS: BP 131/58
[2021-06-11] MEDS: ACCU-CHEK COMFORT CURVE STRIP VI SCH ×2 (05:59→15:59)
[2021-06-11] MEDS: InsuLIN REG 1unit/0.01ml Soln (100units/ml) SC SCH ×2 (05:59→16:00)
[2021-06-11] MEDS: GABAPENTIN 300 MG CAP PO SCH ×2 (06:12→15:59)
[2021-06-11 09:00] VITALS: BP 146/68
[2021-06-11] MEDS: FAMOTIDINE (10MG/ML) 2ML VL IV SCH (10:19)
[2021-06-11] MEDS: CEFTRIAXONE SODIUM 2 GM in D5W 5% 50 ML IV SCH (10:20)
[2021-06-11] MEDS: NIFEdipine ER 30 MG TAB PO SCH (10:21)
[2021-06-11] MEDS: TOLTERODINE TARTRATE 1 MG TAB PO SCH (10:21)
[2021-06-11] MEDS: METOPROLOL SUCCINATE XL 50 MG TAB PO SCH (10:22)
[2021-06-11] MEDS: LISINOPRIL 20 MG TAB PO SCH (10:23)
[2021-06-11 13:00] VITALS: BP 137/71
== END 2021-06-11 16:00 | disposition home health service (06) | DRG 312 ==
LOC: EDBD 11:07 → ER 11:07 → TELE 15:30 → TELE-WESTW 18:32
PROVIDERS: ADMIT Hospitalist; ATTEND Internal Medicine Pulmonary Disease
DX: R55 Syncope and collapse (principal); N39.0 Urinary tract infection, site not specified; E87.6 Hypokalemia; I16.0 Hypertensive urgency; D63.8 Anemia in other chronic diseases classified elsewhere; E11.21 Type 2 diabetes mellitus with diabetic nephropathy; E11.40 Type 2 diabetes mellitus with diabetic neuropathy, unspecified; E83.42 Hypomagnesemia; S01.112A Laceration without foreign body of left eyelid and periocular area, initial encounter; S09.90XA Unspecified injury of head, initial encounter; F17.210 Nicotine dependence, cigarettes, uncomplicated; F32.9 Major depressive disorder, single episode, unspecified; G25.81 Restless legs syndrome; G89.29 Other chronic pain; I11.9 Hypertensive heart disease without heart failure; Z20.822 Contact with and (suspected) exposure to COVID-19; M06.9 Rheumatoid arthritis, unspecified; M19.90 Unspecified osteoarthritis, unspecified site; R62.7 Adult failure to thrive; W18.39XA Other fall on same level, initial encounter; E78.5 Hyperlipidemia, unspecified; Z83.3 Family history of diabetes mellitus; Z91.81 History of falling; Z85.3 Personal history of malignant neoplasm of breast; Z90.710 Acquired absence of both cervix and uterus; Y93.89 Activity, other specified; Y92.89 Other specified places as the place of occurrence of the external cause; Y99.8 Other external cause status; Z88.2 Allergy status to sulfonamides; Z88.1 Allergy status to other antibiotic agents; Z91.013 Allergy to seafood; M48.061 Spinal stenosis, lumbar region without neurogenic claudication
CPT/HCPCS: 36415; 70450; 70486; 70551; 71045; 72131; 73080; 80048; 80053; 81001; 82962; 83036; 83735; 84443; 84484; 85025; 85610; 87040; 87081; 87086; 87426; 93005; 93306; 93886; 95819; 96360; 97110; 97116; 97163; 97530; G0378; J0696; J1815; J3490; J7060